=== PATIENT | female | born 1955 | race Two or more races ===

== ENCOUNTER 2016-06-17 14:07 | Emergency (ER) | payer OTHER ==
--- NOTE | 2016-06-17 14:38 | PDOC ---
Rapid Medical Evaluation Chief Complaint: Chest Pain Time Seen by Provider: 06/17/16 14:35 Medical Evaluation: I have performed a brief in-person evaluation of this patient. The patient presents with a chief complaint of: 60 yo F history HTN, DM, hypothyroid, CAD s/p stent x1 in 2013. Now with cp for few months, now worse, described as pressure in chest. I have ordered the following: CBC, CMP, CE, EKG. The patient will proceed to the ED for further evaluation.
--- NOTE | 2016-06-17 17:38 | PDOC ---
History of Present Illness - General History Source: Patient, Old Records <Jorge L Willingham - Last Filed: 06/17/16 21:07> - General History Source: Patient Exam Limitations: No Limitations <Tiffany Sanchez - Last Filed: 06/19/16 08:00> - General Chief Complaint: Chest Pain Stated Complaint: CHEST PAIN Time Seen by Provider: 06/17/16 14:35 - History of Present Illness Initial Comments: 06/17/16 18:38 The patient is a 60 year old female with a past medical history of HTN, diabetes , hypothyroid, CAD s/p stent x1 in 2013 who presents to the emergency department for further evaluation of chest pain for 3 months worsening over the last 3-4 days. The patient notes that she has recently been anxious and depressed secondary to losing her job and health insurance. The patient describes her pain as constant, shooting, and radiating to her left arm and upper left back. The patient notes that normally her chest pain is relieved by taking aspirin but she has had no relief recent symptoms when taking aspirin. The patient notes that at baseline she experiences SOB and generalized weakness on exertion. The patient reports associated bilateral foot edema, shortness of breath, decreased appetite, unexplained weight loss. (Jorge L Willingham) Past History <Jorge L Willingham - Last Filed: 06/17/16 21:07> - Past Medical History Diabetes: Yes HTN: Yes Thyroid Disease: Yes - Surgical History Cardiac Surgery: Yes (stent x 1) - Psycho/Social/Smoking Cessation Hx Suicidal Ideation: No Smoking History: Never smoked <Tiffany Sanchez - Last Filed: 06/19/16 08:00> - Past Medical History Allergies/Adverse Reactions: Allergies Allergy/AdvReac Type Severity Reaction Status Date / Time No Known Allergies Allergy Verified 06/17/16 14:41 Home Medications: Ambulatory Orders Levothyroxine [Synthroid -] 50 mcg PO DAILY 06/17/16 Lisinopril [Prinivil] 20 mg PO DAILY 06/17/16 Metformin HCl [Glucophage] 1,000 mg PO BID 06/17/16 Review of Systems - Review of Systems Able to Perform ROS?: Yes <Jorge L Willingham - Last Filed: 06/17/16 21:07> <Tiffany Sanchez - Last Filed: 06/19/16 08:00> - Review of Systems Comments:: 06/17/16 18:38 GENERAL/CONSTITUTIONAL: Yes: decreased appetite No: fever, chills, weakness. HEAD, EYES, EARS, NOSE AND THROAT: No: change in vision, ear pain, discharge, sore throat, throat swelling. CARDIOVASCULAR: Yes: Chest pain. No: lightheadedness, palpitations, syncope RESPIRATORY: Yes: Shortness of breath No: cough, hemoptysis, stridor. GASTROINTESTINAL: No: vomiting, abdominal cramping, diarrhea, rectal bleeding, constipation. GENITOURINARY: No: dysuria, hematuria, urgency. MUSCULOSKELETAL: Yes: left upper extremity pain, left upper back pain. No: neck pain. SKIN: No: lesions, pallor, rash or easy bruising. NEUROLOGIC: No: headache, vertigo, paresthesias, weakness ENDOCRINE: Yes Unexplained weight loss No: unexplained weight gain HEMATOLOGIC/LYMPHATIC: Yes: bilateral foot edema. No: anemia, easy bleeding, swelling nodes (Jorge L Willingham) *Physical Exam <Jorge L Willingham - Last Filed: 06/17/16 21:07> <Tiffany Sanchez - Last Filed: 06/19/16 08:00> - Vital Signs Last Vital Signs Temp Pulse Resp BP Pulse Ox 98.1 F 82 18 123/62 99 06/18/16 11:27 06/18/16 18:18 06/18/16 18:18 06/18/16 18:18 06/18/16 18:18 - Physical Exam Comments: 06/17/16 18:38 GENERAL: The patient is in no acute distress. HEAD: Normal with no signs of trauma. EYES: PERRLA, EOMI, sclera anicteric, conjunctiva clear. ENT: Ears normal, nares patent, oropharynx clear without exudates. Moist mucous membranes. NECK: Normal range of motion, supple without lymphadenopathy, JVD, or masses. LUNGS: Breath sounds equal, clear to auscultation bilaterally. No wheezes, and no crackles. HEART:Regular rate and rhythm, normal S1 and S2 without murmur, rub or gallop. ABDOMEN: Soft, nontender, normoactive bowel sounds. No guarding, no rebound. EXTREMITIES: Normal range of motion, no edema. No clubbing or cyanosis. No erythema, or tenderness. NEUROLOGICAL: Cranial nerves II through XII grossly intact. Normal speech. No focal neurological deficits. MUSCULOSKELETAL: Back nontender to palpation, no CVA tenderness SKIN: Warm, Dry, normal turgor, no rashes or lesions noted. (Jorge L Willingham) Heart Score/ECG Review <Jorge L Willingham - Last Filed: 06/17/16 21:07> - History History: Highly suspicious - Electrocardiogram EKG: Non specific repolarization disturbance - Age Age: 45-65 - Risk Factors Risk Factors Heart Score: Yes Hx Hypertension, Yes Hx Diabetes Based on the list above the patient has:: 1-2 risk factors - Troponin Troponin: </= normal limit - Score Heart Score - Total: 5 <Tiffany Sanchez - Last Filed: 06/19/16 08:00> - ECG Impressions Comment:: 06/17/16 18:40 IMAGIN. ECG Impression: Normal sinus rhythm. Possible left atrial enlargement. Septal infarct, age undetermined. Abnormal ECG. Reviewed and interpreted by Dr. Sil Sanchez MD. (Jorge L Willingham) ED Treatment Course - LABORATORY CBC & Chemistry Diagram: 06/17/16 18:15 06/17/16 18:15 <Jorge L Willingham - Last Filed: 06/17/16 21:07> - LABORATORY CBC & Chemistry Diagram: 06/18/16 09:15 06/18/16 06:20 <Tiffany Sanchez - Last Filed: 06/19/16 08:00> - ADDITIONAL ORDERS Additional order review: 06/18/16 06/18/16 06/18/16 11:44 09:15 09:13 RBC 4.65 MCV 87.4 MCHC 33.6 RDW 12.9 MPV 11.8 H Neutrophils % 42.7 L Lymphocytes % 41.3 H Monocytes % 8.4 Eosinophils % 7.3 H Basophils % 0.3 POC Glucometer [id number] [phone] 06/17/16 18:15 RBC 5.01 MCV 86.7 MCHC 33.6 RDW 13.1 MPV 11.1 Neutrophils % 49.7 Lymphocytes % 34.9 Monocytes % 9.2 Eosinophils % 5.8 H Basophils % 0.4 POC Glucometer - RADIOLOGY Radiograph Interpretation: 06/17/16 21:05 1. CXR Clinical information: Chest pain. Chest x ray, PA and Lateral Comparison: No prior is available for comparison The cardiac silhouette is within normal limits in size. The lung is clear. Mediastinum and visualized osseous structures appear grossly intact with mild anterior spondylosis in the mid to lower thoracic spine. Note is made of postcholecystectomy surgical metallic clips in the right upper quadrant, medially Impression: Unremarkable examination without evidence of acute lung disease. Reported By: Bret Raphael MD. (Jorge L Willingham) - Medications Given in the ED: ED Medications Discontinued Medications Generic Name Dose Route Start Last Admin Trade Name Freq PRN Reason Stop Dose Admin Aspirin 162 mg 06/17/16 19:32 06/17/16 19:53 Asa - PO 06/17/16 19:33 162 mg ONCE ONE Administration Aspirin 81 mg 06/18/16 10:00 06/18/16 09:25 Asa - PO 81 mg DAILY CORRINE Administration Heparin Sodium (Porcine) 5,000 unit 06/17/16 22:00 06/18/16 23:41 Heparin - SQ Not Given BID [facility] Sodium Chloride 1,000 mls @ 50 mls/hr 06/17/16 21:45 06/17/16 22:16 Normal Saline - IV 06/18/16 21:36 50 mls/hr ASDIR CORRINE Administration Insulin Aspart 1 vial 06/17/16 22:00 06/18/16 23:41 Novolog Vial Sliding Scale - SQ Not Given ACHS [facility] Protocol Insulin Aspart 10 units 06/18/16 23:42 06/18/16 23:41 Novolog SQ 06/18/16 23:43 Not Given ONCE ONE Levothyroxine Sodium 50 mcg 06/18/16 07:00 06/18/16 09:24 Synthroid - PO 50 mcg DAILY@0700 CORRINE Administration Lisinopril 20 mg 06/18/16 10:00 06/18/16 09:25 Prinivil PO 20 mg DAILY CORRINE Administration Morphine Sulfate 4 mg 06/17/16 22:22 06/17/16 23:24 Morphine Injection - IVPUSH 06/17/16 22:23 4 mg ONCE ONE Administration Ondansetron HCl 4 mg 06/17/16 22:22 06/17/16 23:25 Zofran Injection IVPB 06/17/16 22:23 4 mg ONCE ONE Administration Medical Decision Making <Jorge L Willingham - Last Filed: 06/17/16 21:07> <Tiffany Sanchez - Last Filed: 06/19/16 08:00> - Medical Decision Making 06/17/16 17:37 A portion of this note was documented by scribe services under my direction. I have reviewed the details of the note, within reason, and agree with the documentation with the following case summary and management plan written by me. Nursing documentation reviewed and incorporated into medical decision making 06/17/16 18:50 This is a 60 yo F with a history of DM, HTN, Hypothyroidism, CAD s/p WI and stent x 1 Pt presents to the ER with a complaint of chest pain which has been present for the past 3 months Pain has worsened over the past few days Initially intermittent, now more persistent No fevers, chills, cough Pain concerned patient because it feels like the last time she had an WI Pain in sharp and pressure, located in the left chest and radiates to her back and left arm Pt states that when she walks or goes up an incline, she has to stop due to weakness, shortness of breath, fatigue 06/17/16 18:51 Pt heart score = [address] on observation to hospitalist service Pt has no PMD, 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 Pt has not taken any medications in the past year 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 06/17/16 18:54 06/17/16 19:32 Laboratory Tests 06/17/16 06/17/16 06/17/16 18:15 18:15 18:15 WBC 6.1 Hgb 14.6 Hct 43.5 Plt Count 154 Neutrophils % 49.7 Lymphocytes % 34.9 INR 1.01 Sodium 134 L Potassium 3.9 Chloride 96 L Carbon Dioxide 29 Anion Gap 9 BUN 9 Creatinine 0.7 Random Glucose 359 H* Creatine Kinase 38 Troponin I < 0.02 TSH 06/17/16 18:15 WBC Hgb Hct Plt Count Neutrophils % Lymphocytes % INR Sodium Potassium Chloride Carbon Dioxide Anion Gap BUN Creatinine Random Glucose Creatine Kinase Troponin I TSH 8.90 H CXR: pending 06/17/16 20:41 CXR: nml Case reviewed with hospitalist Will place on observation for SANTINO (Tiffany Sanchez) *DC/Admit/Observation/Transfer <Jorge L Willingham - Last Filed: 06/17/16 21:07> - Discharge Dispostion Admit: Yes <Tiffany Sanchez - Last Filed: 06/19/16 08:00> Diagnosis at time of Disposition: Chest pain Qualifiers: Chest pain type: other chest pain Qualified Code(s): R07.89 - Other chest pain - Discharge Dispostion Disposition: HOME Condition at time of disposition: Stable - Referrals Referrals: Hitesh Davison MD [Staff Physician] - - Patient Instructions Additional Instructions: Regular diet, increase activity as tolerated. Follow up with Business Applications Developer Dr. Davison on Wednesday or Wednesday of next week. - Attestations Scribe Attestion: 06/17/16 18:38 Documentation prepared by Jorge L Willingham, acting as medical assistant dermatology for Tiffany Sanchez MD/. (Jorge L Willingham)
[2016-06-17 18:35] LABS: BASOPHIL 0.4 % (0-2.0); EOSINOPHIL 5.8 % (0-4.5); MCH 29.2 pg (25.7-33.7); MCHC 33.6 g/dl (32.0-36.0); MEAN CELL VOLUME 86.7 fl (80-96); MEAN PLT VOLUME 11.1 fl (7.5-11.1); NEUTROPHILS 49.7 % (42.8-82.8); PLATELET COUNT 154 K/MM3 (134-434); RDW 13.1 % (11.6-15.6); WHITE BLOOD COUNT 6.1 K/mm3 (4.0-10.0)
[2016-06-17 18:57] LABS: INR 1.01 (0.82-1.09); PROTHROMBIN TIME (PATIENT) 11.1 SEC (9.98-11.88)
[2016-06-17 19:12] LABS: ALBUMIN 3.5 g/dl (3.4-5.0); ANION GAP 9 (8-16); CALCIUM 9.3 mg/dL (8.5-10.1); CO2 29 mmol/L (21-32)
[2016-06-17 19:17] LABS: ALK PHOS 96 U/L (45-117); BILIRUBIN,TOTAL 0.4 mg/dL (0.2-1.0); CREATININE 0.7 mg/dL (0.55-1.02); SGOT/AST 6 U/L (15-37); SGPT/ALT 14 U/L (12-78); TOT PROT 7.4 g/dl (6.4-8.2); TROPONIN I < 0.02 ng/ml (0.00-0.05)
[2016-06-17 19:19] LABS: GLUCOSE,RANDOM 359 mg/dL (74-106)
[2016-06-17] MEDS ORDERED: ASPIRIN 81 MG CHEWABLE TABLETS PO ONE (19:32)
[2016-06-17] MEDS ORDERED: ASPIRIN 81 MG CHEWABLE TABLETS ONE (19:47)
--- NOTE | 2016-06-17 20:24 | PN ---
<Abhi Mack - Last Filed: 06/17/16 20:23> Teaching Attending Note Name of Resident: Nitish Robbins ATTENDING PHYSICIAN STATEMENT I saw and evaluated the patient. I reviewed the resident's note and discussed the case with the resident. I agree with the resident's findings and plan as documented. SUBJECTIVE: OBJECTIVE: ASSESSMENT AND PLAN: <Rebeka Soto - Last Filed: 06/18/16 00:05> Teaching Attending Note ATTENDING PHYSICIAN STATEMENT I saw and evaluated the patient. I reviewed the resident's note and discussed the case with the resident. I agree with the resident's findings and plan as documented. SUBJECTIVE: Patient is a 60 yo F with a PMHx of HTN, diabetes, hypothyroid, CAD s/p stent x1 in 2013 who presents with 3 months of intermittent chest pain that worsened over the past 3 days and radiates toward the back. Chest pain is located in the left chest and sharp and not related to exertion. Chest pain used to be alleviated with aspirin. Today, pain in left chest that was burning and sharp and radiated toward back. Denies physical activity, palpitations, sob, lightheadedness, nausea and vomiting. Patient lost her job and health insurance a year ago and was off her medications for a long period of time. Patient states she now has health insurance. Patient does not take nitroglycerin because it makes her feel funny. Surgical Hx: Tubal ligation, appendectomy, ectopic . OBJECTIVE: Last Vital Signs Temp Pulse Resp BP Pulse Ox 98.2 F 95 H 18 150/87 96 06/17/16 14:36 06/17/16 21:28 06/17/16 21:28 06/17/16 21:28 06/17/16 21:28 GENERAL: Awake, alert, and fully oriented, in no acute distress. HEENT: Atraumatic. Moist mucosa. Normocephalic. No sinus tenderness. No LAD. NECK: No JVD. No thyroid masses. Supple. LUNGS: Clear to auscultation bilaterally. No wheezing, rhonchi or rales. HEART: Regular rate and rhythm, normal S1 and S2, no murmurs, rubs or gallops, peripheral pulses normal and equal bilaterally. ABDOMEN: Soft, nontender, normoactive bowel sounds. No guarding, no rebound. No Masses. MUSCULOSKELETAL: No joint tenderness or erythema. No muscle tenderness. Normal muscle bulk and tone. EXTREMITIES: Normal inspection, No edema. No clubbing or cyanosis. Moves all extremities. SKIN: Warm, dry, normal turgor, no rashes or lesions noted. CBCD WBC 6.1 K/mm3 (4.0-10.0) 06/17/16 18:15 RBC 5.01 M/mm3 (3.60-5.2) 06/17/16 18:15 Hgb 14.6 GM/dL (10.7-15.3) 06/17/16 18:15 Hct 43.5 % (32.4-45.2) 06/17/16 18:15 MCV 86.7 fl (80-96) 06/17/16 18:15 MCHC 33.6 g/dl (32.0-36.0) 06/17/16 18:15 RDW 13.1 % (11.6-15.6) 06/17/16 18:15 Plt Count 154 K/MM3 (134-434) 06/17/16 18:15 MPV 11.1 fl (7.5-11.1) 06/17/16 18:15 CMP Sodium 134 mmol/L (136-145) L 06/17/16 18:15 Potassium 3.9 mmol/L (3.5-5.1) 06/17/16 18:15 Chloride 96 mmol/L (98-107) L 06/17/16 18:15 Carbon Dioxide 29 mmol/L (21-32) 06/17/16 18:15 Anion Gap 9 (8-16) 06/17/16 18:15 BUN 9 mg/dL (7-18) 06/17/16 18:15 Creatinine 0.7 mg/dL (0.55-1.02) 06/17/16 18:15 Creat Clearance w eGFR > 60 (>60) 06/17/16 18:15 Calcium 9.3 mg/dL (8.5-10.1) 06/17/16 18:15 Total Bilirubin 0.4 mg/dL (0.2-1.0) 06/17/16 18:15 AST 6 U/L (15-37) L 06/17/16 18:15 ALT 14 U/L (12-78) 06/17/16 18:15 Alkaline Phosphatase 96 U/L (45-117) 06/17/16 18:15 Total Protein 7.4 g/dl (6.4-8.2) 06/17/16 18:15 Albumin 3.5 g/dl (3.4-5.0) 06/17/16 18:15 ECG NSR with poor R wave progression with the Q waves located in the anterior leads. No acute ST changes noted. Patient has as Hx of CAD with an unknown stent , hypothyroidism, diabetes and HTN. ASSESSMENT AND PLAN: Patient is a 60 yo F with a PMHx of HTN, diabetes, hypothyroid, CAD s/p stent x1 in 2013 who presents with atypical chest pain. 1.) Atypical chest pain -r/o ACS -Heart score 5 -Abnormal ECG but no acute ST changes and negative initial troponin -Admit to Obs/Tele -Serial troponins -Repeat ECG -Aspirin 162 mg PO STAT 2.) HTN -Lisinopril 20 mg daily 3.) Hypothyroidism -Uncontrolled -Send T4 -Levothyroxine 50 ug daily on an empty stomach 4.) Diabetes -Uncontrolled -Send A1C -Insulin sliding scale -Start in [place] 10 units QHS -Diabetic 2g sodium diet -Lipitor 20 mg daily 5.) CAD s/p 1 stent in 2013 -Aspirin 81 mg daily -Lipitor 20 mg daily DVT ppx -Low risk SCDs Admit to Obs/Tele Documentation prepared by Rebeka Soto, acting as medical health researcher for Abhi Mack M.D.
--- NOTE | 2016-06-17 21:38 | HP ---
Addendum entered and electronically signed by Nitish Robbins RES 06/18/16 06:14 : -Heart score 5 -Abnormal ECG but no acute ST changes and negative initial troponin Original Note: CHIEF COMPLAINT: chest pain PCP: none HISTORY OF PRESENT ILLNESS: 60 year old female with a past medical history of HTN, diabetes, hypothyroid, CAD s/p stent x1 in 2013 who presents to the emergency department for further evaluation of chest pain for 3 months worsening over the last 3-4 days. Patient states that pain is present on left side of chest, started around 8: 00am in morning when she was sitting, 8/10 i intensity, burning/ sharp in nature, radiating to left shoulder and arm, use to get better in past with motrin and aspirin but today it didn't get better and radiated to left arm and shoulder. Patient states that she in last three months she has this kind of pain couple of time and it was intermittent, use to get better with motrin and aspirin. Patient denies sob, palpitation, lightheadidness , diziness, vomiting, burning micturation, diarrhoea, constipation. Denies headache. Patient states that she has lost around 40 pounds in two year and also noticed decreased in appetite. The patient notes that she has recently been anxious and depressed secondary to losing her job and health insurance. not taking any medication from one year. ER course was notable for: (1) cbc, cmp, cxr (2) aspirin Recent Travel: no PAST MEDICAL HISTORY: htn, dm, hypothyroid, cad PAST SURGICAL HISTORY: appendectomy, myomectomy, tubal ligation, ectopic Social History: Smoking: no Alcohol: no Drugs: no Family History: Allergies No Known Allergies Allergy (Verified 06/17/16 14:41) HOME MEDICATIONS: Home Medications Medication Instructions Recorded Levothyroxine [Synthroid -] 50 mcg PO DAILY 06/17/16 Lisinopril [Prinivil] 20 mg PO DAILY 06/17/16 Metformin HCl [Glucophage] 1,000 mg PO BID 06/17/16 REVIEW OF SYSTEMS CONSTITUTIONAL: Absent: fever, chills, diaphoresis, generalized weakness, malaise, loss of appetite, weight change HEENT: Absent: rhinorrhea, nasal congestion, throat pain, throat swelling, difficulty swallowing, mouth swelling, ear pain, eye pain, visual changes CARDIOVASCULAR: Absent: chest pain, syncope, palpitations, irregular heart rate, lightheadedness , peripheral edema RESPIRATORY: Absent: cough, shortness of breath, dyspnea with exertion, orthopnea, wheezing, stridor, hemoptysis GASTROINTESTINAL: Absent: abdominal pain, abdominal distension, nausea, vomiting, diarrhea, constipation, melena, hematochezia GENITOURINARY: Absent: dysuria, frequency, urgency, hesitancy, hematuria, flank pain, genital pain MUSCULOSKELETAL: Absent: myalgia, arthralgia, joint swelling, back pain, neck pain SKIN: Absent: rash, itching, pallor HEMATOLOGIC/IMMUNOLOGIC: Absent: easy bleeding, easy bruising, lymphadenopathy, frequent infections ENDOCRINE: Absent: unexplained weight gain, unexplained weight loss, heat intolerance, cold intolerance NEUROLOGIC: Absent: headache, focal weakness or paresthesias, dizziness, unsteady gait, seizure, mental status changes, bladder or bowel incontinence PSYCHIATRIC: Absent: anxiety, depression, suicidal or homicidal ideation, hallucinations. PHYSICAL EXAMINATION Vital Signs - 24 hr 06/17/16 14:36 Temperature 98.2 F Pulse Rate 110 H Respiratory 16 Rate Blood Pressure 164/80 O2 Sat by Pulse 98 Oximetry (%) GENERAL: Awake, alert, and fully oriented, in no acute distress. HEAD: Normal with no signs of trauma. EYES: Pupils equal, round and reactive to light, extraocular movements intact, sclera anicteric, conjunctiva clear. No lid lag. EARS, NOSE, THROAT: Ears normal, nares patent, oropharynx clear without exudates. dry mucous membranes. NECK: Normal range of motion, supple without lymphadenopathy, JVD, or masses. LUNGS: Breath sounds equal, clear to auscultation bilaterally. No wheezes, and no crackles. No accessory muscle use. HEART: Regular rate and rhythm, normal S1 and S2 without murmur, ABDOMEN: Soft, nontender, not distended, normoactive bowel sounds, no guarding, no rebound, no masses. MUSCULOSKELETAL: Normal range of motion at all joints. No bony deformities or tenderness. No CVA tenderness. UPPER EXTREMITIES: 2+ pulses, warm, well-perfused. No cyanosis. No clubbing. Cap refill <2 seconds. No peripheral edema. LOWER EXTREMITIES: 2+ pulses, warm, well-perfused. No calf tenderness. No peripheral edema. NEUROLOGICAL: Cranial nerves II-XII intact. Normal speech. PSYCHIATRIC: Cooperative. Good eye contact. SKIN: Warm, dry, normal turgor, no rashes or lesions noted. Laboratory Results - last 24 hr 06/17/16 06/17/16 06/17/16 18:15 18:15 18:15 WBC 6.1 RBC 5.01 Hgb 14.6 Hct 43.5 MCV 86.7 MCHC 33.6 RDW 13.1 Plt Count 154 MPV 11.1 Neutrophils % 49.7 Lymphocytes % 34.9 Monocytes % 9.2 Eosinophils % 5.8 H Basophils % 0.4 INR 1.01 Sodium 134 L Potassium 3.9 Chloride 96 L Carbon Dioxide 29 Anion Gap 9 BUN 9 Creatinine 0.7 Creat Clearance w eGFR > 60 Random Glucose 359 H* Calcium 9.3 Total Bilirubin 0.4 AST 6 L ALT 14 Alkaline Phosphatase 96 Creatine Kinase 38 Troponin I < 0.02 B-Natriuretic Peptide Total Protein 7.4 Albumin 3.5 TSH 06/17/16 06/17/16 18:15 18:15 WBC RBC Hgb Hct MCV MCHC RDW Plt Count MPV Neutrophils % Lymphocytes % Monocytes % Eosinophils % Basophils % INR Sodium Potassium Chloride Carbon Dioxide Anion Gap BUN Creatinine Creat Clearance w eGFR Random Glucose Calcium Total Bilirubin AST ALT Alkaline Phosphatase Creatine Kinase Troponin I B-Natriuretic Peptide 87.61 Total Protein Albumin TSH 8.90 H Current Medications Generic Name Dose Route Start Last Admin Trade Name Freq PRN Reason Stop Dose Admin Acetaminophen 650 mg 06/17/16 22:22 Tylenol - PO Q6H PRN FEVER OR PAIN Aspirin 81 mg 06/18/16 10:00 Asa - PO DAILY [facility] Heparin Sodium (Porcine) 5,000 unit 06/17/16 22:00 06/17/16 22:16 Heparin - SQ 5,000 unit BID CORRINE Administration Sodium Chloride 1,000 mls @ 50 mls/hr 06/17/16 21:45 06/17/16 22:16 Normal Saline - IV 06/18/16 21:36 50 mls/hr ASDIR CORRINE Administration Insulin Aspart 1 vial 06/17/16 22:00 Novolog Vial Sliding Scale - SQ ACHS [facility] Protocol Levothyroxine Sodium 50 mcg 06/18/16 07:00 Synthroid - PO DAILY@0700 CORRINE Lisinopril 20 mg 06/18/16 10:00 Prinivil PO DAILY [facility] ASSESSMENT/PLAN: 60 year old female with a past medical history of HTN, diabetes , hypothyroid, CAD s/p stent x1 in 2013 who presents to the emergency department for further evaluation of chest pain for 3 months worsening over the last 3-4 days. Atypical chest pain cardiac monitoring received 162 mg aspirin in ed continue with 81 daily initial trop i negative follow second set ekg reviewed q wave follow echo monitor vitals acetaminophen for pain zoyran for nausea cardiology consult. 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 - New Patient This patient is new to me today: Yes Date on this admission: 06/18/16 - Critical Care Critical Care patient: No
[2016-06-17] MEDS ORDERED: SODIUM CHLORIDE 1,000 ML IV SCH (21:45)
[2016-06-17] MEDS ORDERED: HEPARIN NA (PORCINE) 5,000 UNITS/ML 1ML VIAL ONE (22:11)
[2016-06-17] MEDS: HEPARIN NA (PORCINE) 5,000 UNITS/ML 1ML VIAL SQ SCH (22:16)
[2016-06-17] MEDS ORDERED: ACETAMINOPHEN 325 MG TABLET (FP) PO PRN (22:22)
[2016-06-17] MEDS ORDERED: ONDANSETRON 4 MG/2 ML VIAL IVPB ONE (22:22)
[2016-06-17] MEDS ORDERED: morphine CARPU-JECT 4 MG/1 ML DISP.SYRIN IVPUSH ONE (22:22)
[2016-06-17] MEDS ORDERED: ONDANSETRON 4 MG/2 ML VIAL ONE (23:19)
[2016-06-17] MEDS ORDERED: morphine CARPU-JECT 4 MG/1 ML DISP.SYRIN ONE (23:19)
[2016-06-17] MEDS ORDERED: INSULIN (NOVOLOG) ASPART 100 UNITS/ML 10ML VIAL ONE (23:45)
[2016-06-17] MEDS: INSULIN SLIDING SCALE (NOVOLOG) 1 VIAL SQ SCH (23:48)
[2016-06-18] MEDS ORDERED: LEVOTHYROXINE NA 50 MCG TABLET (FP) PO SCH ×2 (07:00→10:00)
[2016-06-18 07:48] LABS: ALBUMIN 2.7 g/dl (3.4-5.0); ANION GAP 9 (8-16); BILIRUBIN,TOTAL 0.4 mg/dL (0.2-1.0); CHOLESTEROL 199 mg/dL (50-200); CO2 26 mmol/L (21-32); CREATININE 0.5 mg/dL (0.55-1.02); GLUCOSE,RANDOM 292 mg/dL (74-106); LDL CHOLESTEROL (ONLY SJRH) 139 mg/dL (5-100); MAGNESIUM 1.7 mg/dL (1.8-2.4); PHOSPHOROUS 3.6 mg/dL (2.5-4.9); SGOT/AST 93 U/L (15-37); SGPT/ALT 65 U/L (12-78); TOT PROT 5.9 g/dl (6.4-8.2)
[2016-06-18 07:49] LABS: ALK PHOS 106 U/L (45-117); TROPONIN I < 0.02 ng/ml (0.00-0.05)
--- NOTE | 2016-06-18 09:06 | PN ---
Progress Note (short form) - Note Progress Note: Cardiology consult dictated Known CAD s/p PCI '14 Chest pain w/ mixed features REC: 3rd enzyme Echo Stress test prior to d/c
[2016-06-18] MEDS ORDERED: LEVOTHYROXINE NA 25 MCG TABLET (FP) ONE (09:18)
[2016-06-18] MEDS ORDERED: ASPIRIN 81 MG CHEWABLE TABLETS ONE (09:19)
[2016-06-18] MEDS ORDERED: HEPARIN NA (PORCINE) 5,000 UNITS/ML 1ML VIAL ONE (09:19)
[2016-06-18] MEDS ORDERED: LISINOPRIL 20 MG TABLET (FP) ONE (09:20)
[2016-06-18] MEDS ORDERED: INSULIN (NOVOLOG) ASPART 100 UNITS/ML 10ML VIAL ONE ×3 (09:21→18:14)
[2016-06-18] MEDS: INSULIN SLIDING SCALE (NOVOLOG) 1 VIAL SQ SCH ×4 (09:23→23:41)
[2016-06-18 09:25] LABS: BASOPHIL 0.3 % (0-2.0); EOSINOPHIL 7.3 % (0-4.5); MCH 29.4 pg (25.7-33.7); MCHC 33.6 g/dl (32.0-36.0); MEAN CELL VOLUME 87.4 fl (80-96); MEAN PLT VOLUME 11.8 fl (7.5-11.1); NEUTROPHILS 42.7 % (42.8-82.8); PLATELET COUNT 133 K/MM3 (134-434); RDW 12.9 % (11.6-15.6); WHITE BLOOD COUNT 4.5 K/mm3 (4.0-10.0)
[2016-06-18] MEDS: HEPARIN NA (PORCINE) 5,000 UNITS/ML 1ML VIAL SQ SCH ×2 (09:25→23:41)
[2016-06-18 09:35] LABS: INR 1.05 (0.82-1.09); PROTHROMBIN TIME (PATIENT) 11.6 SEC (9.98-11.88)
[2016-06-18] MEDS ORDERED: LISINOPRIL 20 MG TABLET (FP) PO SCH (10:00)
[2016-06-18] MEDS ORDERED: ASPIRIN 81 MG CHEWABLE TABLETS PO SCH (10:00)
--- NOTE | 2016-06-18 10:48 | EKG ---
Test Reason : Blood Pressure : / mmHG Vent. Rate : 094 BPM Atrial Rate : 094 BPM P-R Int : 162 ms QRS Dur : 068 ms QT Int : 358 ms P-R-T Axes : 046 047 051 degrees QTc Int : 447 ms NORMAL SINUS RHYTHM POSSIBLE LEFT ATRIAL ENLARGEMENT SEPTAL INFARCT , AGE UNDETERMINED ABNORMAL ECG NO PREVIOUS ECGS AVAILABLE Confirmed by RICARDO JOHNSON MD ([id number]) on 06/18/2016 10:48:09 AM Referred By: Confirmed By:RICARDO JOHNSON MD
[2016-06-18 11:44] VITALS: TEMP 98.1; BMI 26.5
[2016-06-18 13:54] LABS: TROPONIN I < 0.02 ng/ml (0.00-0.05)
--- NOTE | 2016-06-18 14:45 | PN ---
Physical Exam: SUBJECTIVE: Patient seen and examined, does not admit to chest pain at the moment, denies palpitations, lightheadedness, pain going down arm or radiating to back. Trop neg x 3. OBJECTIVE: Vital Signs Period Temp Pulse Resp BP Sys/Bullard Pulse Ox Last 24 Hr 98.1 F 78 16 130/69 97-98 GENERAL: The patient is awake, alert, and fully oriented, in no acute distress. HEAD: Normal with no signs of trauma. EYES: PERRL, extraocular movements intact, sclera anicteric, conjunctiva clear. No ptosis. ENT: Ears normal, nares patent, oropharynx clear without exudates, moist mucous membranes. NECK: Trachea midline, full range of motion, supple. LUNGS: Breath sounds equal, clear to auscultation bilaterally, no wheezes, no crackles, no accessory muscle use. HEART: Regular rate and rhythm, S1, S2 without murmur, rub or gallop. ABDOMEN: Soft, nontender, nondistended, normoactive bowel sounds, no guarding, no rebound, no hepatosplenomegaly, no masses. EXTREMITIES: 2+ pulses, warm, well-perfused, no edema. NEUROLOGICAL: Cranial nerves II through XII grossly intact. Normal speech, gait not observed. PSYCH: Normal mood, normal affect. SKIN: Warm, dry, normal turgor, no rashes or lesions noted Laboratory Results - last 24 hr 06/18/16 06/18/16 11:44 13:20 POC Glucometer 220.69100 Creatine Kinase 27 Troponin I < 0.02 Active Medications Generic Name Dose Route Start Last Admin Trade Name Hermelinda PRN Reason Stop Dose Admin Acetaminophen 650 mg 06/17/16 22:22 Tylenol - PO Q6H PRN FEVER OR PAIN Aspirin 81 mg 06/18/16 10:00 06/18/16 09:25 Asa - PO 81 mg DAILY CORRINE Administration Heparin Sodium (Porcine) 5,000 unit 06/17/16 22:00 06/18/16 09:25 Heparin - SQ 5,000 unit BID CORRINE Administration Sodium Chloride 1,000 mls @ 50 mls/hr 06/17/16 21:45 06/17/16 22:16 Normal Saline - IV 06/18/16 21:36 50 mls/hr ASDIR CORRINE Administration Insulin Aspart 1 vial 06/17/16 22:00 06/18/16 11:46 Novolog Vial Sliding Scale - SQ 4 unit ACHS CORRINE Administration Protocol Insulin Aspart 10 units 06/18/16 23:42 Novolog SQ 06/18/16 23:43 ONCE ONE Levothyroxine Sodium 50 mcg 06/18/16 07:00 06/18/16 09:24 Synthroid - PO 50 mcg DAILY@0700 CORRINE Administration Lisinopril 20 mg 06/18/16 10:00 06/18/16 09:25 Prinivil PO 20 mg DAILY CORRINE Administration ASSESSMENT/PLAN: This is a 60 year old female with PMHx , HTN, DM II, hypothyroid, and CAD s/p stent placement in 2013, artery unknown, who presented to the ER with chest pain for the past 3 months that has progressively gotten worse x3 days. Luis Daniel admits to not taking any of her prescribed medications for the past year due to no insurance from losing her job. 1. Atypical chest pain: -personnel monitor, pain control, ASA, troponin negative x 3 -ECG nsr, showing possible left atrial enlargement/ old infarct (qwave); septal -Echocardiogram showing normal left and right ventricle; trace mitral and tricuspid regurgitation -Cardiac sestamibi stress test; tomorrow -Total LD 139; consider statin -Cardiology consult 2. Hypertension: -lisinopril 20mg po daily 3. Diabetes Mellitus II: -Hemoglobin A1C -Insulin SS; BG achs 4. Hypothyroid: -TSH 8.9 ; free T4; wnl -levothyroxine 50mcg 5. h/o CAD: 2014 in [place]; Fluid ; po electrolyte ; wnl nutrition : diabetic diet dvt pro : heparin sq Disposition: can d/c after stress test if wnl Problem List - Problems (1) Chest pain Code(s): R07.9 - CHEST PAIN, UNSPECIFIED Qualifiers: Chest pain type: other chest pain Qualified Code(s): R07.89 - Other chest pain; R07.8 - Other chest pain (2) Hyperlipidemia Code(s): E78.5 - HYPERLIPIDEMIA, UNSPECIFIED (3) Hyperlipidemia due to type 2 diabetes mellitus Code(s): E11.69 - TYPE 2 DIABETES MELLITUS WITH OTHER SPECIFIED COMPLICATION E78.5 - HYPERLIPIDEMIA, UNSPECIFIED (4) Hypertension Code(s): I10 - ESSENTIAL (PRIMARY) HYPERTENSION Visit type - Emergency Visit Emergency Visit: Yes ED Registration Date: 06/18/16 Care time: The patient presented to the Emergency Department on the above date and was hospitalized for further evaluation of their emergent condition. - New Patient This patient is new to me today: Yes Date on this admission: 06/18/16 - Critical Care Critical Care patient: No
--- NOTE | 2016-06-18 15:38 | PN ---
Teaching Attending Note Name of Resident: Day Cm ATTENDING PHYSICIAN STATEMENT I saw and evaluated the patient. I reviewed the resident's note and discussed the case with the resident. I agree with the resident's findings and plan as documented. SUBJECTIVE:currently CP free. states pain was interment and was unable to relate it to activity. states she never had pain like this in the past. previous cardiac workup of cath in 2013. states she has not taken her medications in several months due to loss of insurance but she has recently started employment and now able to get her medications. denies trauma or strenuous exercise. works as an RN. OBJECTIVE: Last Vital Signs Temp Pulse Resp BP Pulse Ox 98.1 F 78 16 130/69 97 06/18/16 11:27 06/18/16 11:27 06/18/16 11:27 06/18/16 11:27 06/18/16 12:11 General NAD CV S1 S2 RRR no murmur/rub/gallop +chest wall tenderness ASSESSMENT AND PLAN: 60yo F wtih PMH HTN, DM, hypothyroid and CAD s/p stent presented to the ER and was admitted for furhter evaluation of their emergent condition 1. Atypical CP- multiple risk factors and non-compliance with medication. cardiac enzymes neg x3. echo done with no WMA. awaiting stress test. cardio evaluated. asa 81mg 2. Hypothyroid- elevated TSH but has been off medications. cont current medications. will need repeat in 6-8weeks 3. HTN- controlled 4. DM- uncontrolled here but home medications on hold. cont iss. re-start metformin on discharge. will need close monitoring as outpatient 5. d/c planning pending stress test
[2016-06-18 18:19] VITALS: BP 123/62; PULSE 82
[2016-06-18] MEDS ORDERED: Insulin (LOG) Aspart 100 UNITS/ML VIAL SQ ONE (23:42)
--- NOTE | 2016-06-19 09:37 | CONS ---
DATE OF CONSULTATION: 06/18/2016 REQUESTING PHYSICIAN: Abhi Mack MD REASON FOR CONSULTATION: Chest pain. HISTORY OF PRESENT ILLNESS: The patient is a 60-year-old female with past medical history of hypertension, diabetes, coronary disease, status post NSTEMI with PCI in 2013 at [facility], [facility], who has been off of her medications except aspirin for 1 year. She describes 3 months of intermittent chest pain both with and without exertion, occasionally worse when lying on her left side. Although the chest pain is positional in nature, it reminds her in character to the angina symptoms she was having 3 years ago. Her electrocardiogram shows normal sinus rhythm with an old septal infarct pattern, no acute ST changes, and her first 2 sets of cardiac enzymes were negative. She denies significant dyspnea, palpitations, syncope, or heart failure symptoms. PAST MEDICAL HISTORY: Is as above. SURGICAL HISTORY: Includes prior appendectomy, fibroid surgery, and ectopic . ALLERGIES: She has no known drug allergies. MEDICATIONS: Include Tylenol 650 mg p.o. q.6 p.r.n., aspirin 81 mg daily, subcutaneous heparin, insulin, Synthroid 50 mcg daily, Prinivil 20 mg daily. FAMILY HISTORY: Noncontributory. SOCIAL HISTORY: Nonsmoker, works as a registered nurse at [employer], currently lives alone. PHYSICAL EXAMINATION: Vital signs: Afebrile, pulse 95 and regular, blood pressure 161/80, O2 saturation 96% on room air. Neck: No bruits. 2+ pulses. Heart: S1, S2, regular, no murmurs. Chest: Clear. Abdomen: Soft, nontender. Extremities: Warm, no edema. EKG is as above. LABORATORIES: CBC is unremarkable except for slight eosinophilia. INR is normal. Sodium normal 139, potassium 4.1, creatinine 0.5, glucose 292. CK and troponin negative x2 sets. TSH was mildly elevated at 8.9. Chest x-ray showed unremarkable examination with no acute evidence of lung disease. ASSESSMENT: A 60-year-old female with diabetes and coronary disease, remote history of percutaneous coronary intervention, now presenting with chest pain syndrome with mixed features both typical and atypical. PLAN: 1. Aspirin daily. 2. Echocardiogram today. 3. Third cardiac enzyme later in the morning/early afternoon. 4. Plan for stress test prior to discharge. Further recommendations pending above. Thank you for the consultation. TI FLORENCE M.D. [id number]
--- NOTE | 2016-06-19 21:43 | DS ---
Physical Exam: SUBJECTIVE: Patient seen and examined, no new complaints, denied chest pain, palpations, ROJO, lightheadedness, dizziness, leg swelling. OBJECTIVE: PHYSICAL EXAM GENERAL: The patient is awake, alert, and fully oriented, in no acute distress. HEAD: Normal with no signs of trauma. EYES: PERRL, extraocular movements intact, sclera anicteric, conjunctiva clear. ENT: Ears normal, nares patent, oropharynx clear without exudates, moist mucous membranes. NECK: Trachea midline, full range of motion, supple. LUNGS: Breath sounds equal, clear to auscultation bilaterally, no wheezes, no crackles, no accessory muscle use. HEART: Regular rate and rhythm, S1, S2 without murmur, rub or gallop. ABDOMEN: Soft, nontender, nondistended, normoactive bowel sounds, no guarding, no rebound, no hepatosplenomegaly, no masses. EXTREMITIES: 2+ pulses, warm, well-perfused, no edema. NEUROLOGICAL: Cranial nerves II through XII grossly intact. Normal speech, gait not observed. PSYCH: Normal mood, normal affect. SKIN: Warm, dry, normal turgor, no rashes or lesions noted. LABS Laboratory Results - last 24 hr 06/17/16 06/18/16 22:34 01:23 POC Glucometer > [id number] HOSPITAL COURSE: Date of Admission:06/17/16 Date of Discharge: 06/19/16 This is a 60 year old female with PMHx , HTN, DM II, hypothyroid, and CAD s/ p stent placement in 2013, artery unknown, who presented to the ER with chest pain for the past 3 months that has progressively gotten worse x3 days. Patient admits to not taking any of her prescribed medications for the past year due to no insurance from losing her job. She was admitted under observation for atypical chest pain, troponins were negative x3. ECG in emergency room showed nsr, possible left atrial enlargement/ old infarct (qwave); septal . Cardiac sestamibi stress test showing normal myocardial perfusion,LVEF 68%. Electrocardiographic findings, baseline 1mm horizontal ST depressions in leads v4 and v5 during exercise, no arrythmia, no chest pain. Patient has been cleared by cardiology, continue home medications and follow up with web production assistant. Diabetes and hypertension were controlled. Patient also has history of hypothyroid. TSH elevated, although patient was off medicaiton. Advised to continue all home medications.Patient claims she now has insurance. Minutes to complete discharge: 35 Discharge Summary Reason For Visit: CHEST PAIN Condition: Stable - Instructions Diet, Activity, Other Instructions: Regular diet, increase activity as tolerated. Follow up with Building Inspector Dr. Davison on Wednesday or Wednesday of next week. Referrals: Hitesh Davison MD [Staff Physician] - Disposition: HOME - Home Medications Comprehensive Discharge Medication List: Ambulatory Orders Levothyroxine [Synthroid -] 50 mcg PO DAILY 06/17/16 Lisinopril [Prinivil] 20 mg PO DAILY 06/17/16 Metformin HCl [Glucophage] 1,000 mg PO BID 06/17/16 Problem List - Problems (1) Chest pain Code(s): R07.9 - CHEST PAIN, UNSPECIFIED Qualifiers: Chest pain type: other chest pain Qualified Code(s): R07.89 - Other chest pain; R07.8 - Other chest pain (2) Hyperlipidemia Code(s): E78.5 - HYPERLIPIDEMIA, UNSPECIFIED (3) Hyperlipidemia due to type 2 diabetes mellitus Code(s): E11.69 - TYPE 2 DIABETES MELLITUS WITH OTHER SPECIFIED COMPLICATION E78.5 - HYPERLIPIDEMIA, UNSPECIFIED (4) Hypertension Code(s): I10 - ESSENTIAL (PRIMARY) HYPERTENSION This patient is new to me today: No Emergency Visit: Yes Care time: The patient presented to the Emergency Department on the above date and was hospitalized for further evaluation of their emergent condition. Critical Care patient: No - Discharge Referral Referred to [facility] No
== END 2016-06-19 00:02 | disposition home or self-care (01) ==
LOC: JER 14:07 → UNDOADMOB 19:57 → JERBED 19:57 → INTOOBSV 21:28 → OBSVTOIN 21:28 → JERBED 06-18 09:58 → UNDOADMOB 06-18 09:58 → INTOOBSV 06-18 14:35 → OBSVTOIN 06-18 14:35 → JER 06-19 00:02
PROC: 3E033GC Introduction of Other Therapeutic Substance into Peripheral Vein, Percutaneous Approach (ICD-10-PCS; principal; 2016-06-17)
DX: R07.89 Other chest pain (principal); E11.69 Type 2 diabetes mellitus with other specified complication; I10 Essential (primary) hypertension; E03.9 Hypothyroidism, unspecified; Z95.5 Presence of coronary angioplasty implant and graft; Z91.14 Patient's other noncompliance with medication regimen
CPT/HCPCS: 36415; 71020-TC; 78452-TC; 80053; 80061; 82550; 83036; 83721; 83735; 83880; 84100; 84439; 84443; 84484; 85025; 85610; 93005; 93010; 93017; 93306-TC; 99285-25; A9502; C1887; J1644